=== PATIENT | female | born 1975 | race Caucasian/White ===

== ENCOUNTER → 2019-05-25 | Outpatient (CLI) | payer OTHER ==
[~2019-05-25] MED LIST: MOTRIN 600600 MG/TAB PO; SENOKOT S 50 MG1 TAB PO
== END ==
LOC: COL.RAD 10:10
DX: M47.812 Spondylosis without myelopathy or radiculopathy, cervical region (principal)

== ENCOUNTER → 2024-01-30 | Outpatient (CLI) | payer OTHER | LOC: MC.RAD 10:52 | DX: Z12.31 Encounter for screening mammogram for malignant neoplasm of breast (principal) ==